=== PATIENT | female | born 1985 | race Caucasian/White ===

== ENCOUNTER 2016-12-30 15:10 | Emergency (ER) | payer OTHER ==
[~2016-12-30] VITALS: Ht 162.6 cm; Wt 54.4 kg
[2016-12-30 15:21] VITALS: BP 148/98
[2016-12-30] MEDS ORDERED: KEFLEX500 MG PO (17:02)
== END 2016-12-30 18:19 | disposition home or self-care (01) ==
LOC: ER 15:10
DX: S62.637B Displaced fracture of distal phalanx of left little finger, initial encounter for open fracture (principal); W23.1XXA Caught, crushed, jammed, or pinched between stationary objects, initial encounter; Y93.89 Activity, other specified; Y92.89 Other specified places as the place of occurrence of the external cause; Y99.8 Other external cause status